=== PATIENT | male | born 1950 | race Caucasian/White ===

== ENCOUNTER 2017-12-13 20:18 | Inpatient (IN) | payer MEDICARE, OTHER, BC ==
[2017-12-13] MEDS: ACETAMINOPHEN 325 MG TAB PO (20:42)
[2017-12-13 20:52] LABS: ADD MAN DIFF? NO
[2017-12-13 20:58] LABS: WHITE BLOOD COUNT 23.9 10^3/ul (4.8-10.8)
[2017-12-13 20:58] LABS: ABNORMAL IP MESSAGE 1; BASOPHIL # 0.1 10^3/ul (0.0-0.1); BASOPHILS % 0.3 % (0.0-2.0); EOSINOPHILS % 0.1 % (0.0-7.0); HEMATOCRIT 39.6 % (42.0-52.0); HEMOGLOBIN 13.4 g/dl (14.0-18.0); LYMPHOCYTES # 2.4 10^3/ul (0.8-2.9); LYMPHOCYTES % 9.9 % (15.0-51.0); MEAN CORPUSCULAR HEMOGLOBIN 29.2 pg (29.0-33.0); MEAN CORPUSCULAR HGB CONC 33.8 g/dl (32.0-37.0); MEAN CORPUSCULAR VOLUME 86.3 fl (82.0-101.0); MEAN PLATELET VOLUME 11.4 fl (7.4-10.4); MONOCYTE # 1.8 10^3/ul (0.3-0.9); MONOCYTES % 7.3 % (0.0-11.0); NEUTROPHIL # 19.6 10^3/ul (1.6-7.5); PLATELET COUNT 200 10^3/UL (140-415); POSITIVE DIFF @See below; RED BLOOD COUNT 4.59 10^6/ul (4.70-6.10); RED CELL DISTRIBUTION WIDTH 12.8 % (11.5-14.5)
[2017-12-13 21:02] LABS: ADD UMIC NO; UR ASCORBIC ACID NEGATIVE (NEGATIVE); UR BILIRUBIN (Dip) NEGATIVE (NEGATIVE); UR BLOOD (Dip) NEGATIVE (NEGATIVE); UR CLARITY CLEAR (CLEAR); UR COLOR YELLOW (YELLOW); UR GLUCOSE (Dip) 3+ mg/dL (NEGATIVE); UR KETONES (Dip) NEGATIVE (NEGATIVE); UR LEUKOCYTE ESTERASE (Dip) NEGATIVE Leu/ul (NEGATIVE); UR NITRITE (Dip) NEGATIVE (NEGATIVE); UR SPECIFIC GRAVITY (Dip) 1.029 (1.003-1.030); UR TOTAL PROTEIN (Dip) NEGATIVE (NEGATIVE); UR UROBILINOGEN (Dip) NEGATIVE (NEGATIVE)
[2017-12-13 21:17] LABS: ALANINE AMINOTRANSFERASE 25 IU/L (13-69); ALBUMIN 4.6 g/dl (3.3-4.9); ALBUMIN/GLOBULIN RATIO 1.21; ALKALINE PHOSPHATASE 57 IU/L (42-121); ANION GAP 20 (8-16); ASPARTATE AMINO TRANSFERASE 21 IU/L (15-46); BILIRUBIN,INDIRECT 0.7 mg/dl (0-1.1); BILIRUBIN,TOTAL 0.7 mg/dl (0.2-1.3); BLOOD UREA NITROGEN 10 mg/dl (7-20); CALCIUM 9.6 mg/dl (8.4-10.2); CARBON DIOXIDE 21 mmol/L (21-31); CHLORIDE 102 mmol/L (97-110); CREATININE 0.75 mg/dl (0.61-1.24); GLUCOSE 246 mg/dl (70-220); LIPASE 44 U/L (23-300); SODIUM 139 mmol/L (135-144); TOTAL PROTEIN 8.4 g/dl (6.1-8.1)
[2017-12-13] MEDS: SODIUM CHLORIDE 0.9% 1L BAG IV* (22:01)
[2017-12-13 22:31] LABS: INR 1.09; PROTIME 14.3 Sec (11.9-14.9); PT RATIO 1.1
[2017-12-13 22:32] LABS: PARTIAL THROMBOPLASTIN TIME 30.8 Sec (25.0-35.0)
[2017-12-13 22:36] LABS: LACTIC ACID 2.8 mmol/L (0.5-2.0)
[2017-12-13] MEDS: SOD CHLORIDE 0.9% 1,000 ML IV (22:43)
[2017-12-13 22:45] LABS: TROPONIN-I < 0.012 ng/ml (0.000-0.120)
[2017-12-14 00:14] LABS: LACTIC ACID 2.5 mmol/L (0.5-2.0)
[2017-12-14] MEDS ORDERED: BISACODYL (EC) 5 MG TAB PO (00:30)
[2017-12-14] MEDS ORDERED: NACL 0.9% 3 ML SYG IV (00:30)
[2017-12-14] MEDS ORDERED: ONDANSETRON 4 MG INJ IV (00:30)
[2017-12-14] MEDS ORDERED: VANCOMYCIN IV PER PHARMACY XX (00:30)
[2017-12-14] MEDS: SOD CHLORIDE 0.9% 1,000 ML IV ×4 (00:48→16:59)
[2017-12-14] MEDS: PIPER-TAZO 3.375 GM IV (PMX) 100 ML IVPB ×4 (00:48→17:26)
[2017-12-14] MEDS ORDERED: DEXTROSE 50% 50 ML SYRINGE IV ×2 (01:00)
[2017-12-14] MEDS ORDERED: GLUCAGON 1 MG INJ IM (01:00)
[2017-12-14] MEDS ORDERED: GLUCOSE GEL 15 GRAM TUBE PO ×2 (01:00)
[2017-12-14] MEDS ORDERED: GLUCOSE GEL 15 GRAM TUBE BUCCAL (01:00)
[2017-12-14] MEDS: ACCU-CHEK XX (02:00)
[2017-12-14 02:51] LABS: LACTIC ACID 1.8 mmol/L (0.5-2.0)
[2017-12-14] MEDS: VANCOMYCIN 1.75 GM in SOD CHLORIDE 0.9% 500 ML IVPB (03:56)
[2017-12-14 06:52] LABS: ADD MAN DIFF? NO
[2017-12-14 06:53] LABS: WHITE BLOOD COUNT 19.6 10^3/ul (4.8-10.8)
[2017-12-14 06:53] LABS: BASOPHILS % 0.2 % (0.0-2.0); HEMATOCRIT 37.6 % (42.0-52.0); HEMOGLOBIN 12.7 g/dl (14.0-18.0); LYMPHOCYTES # 1.7 10^3/ul (0.8-2.9); LYMPHOCYTES % 8.6 % (15.0-51.0); MEAN CORPUSCULAR HEMOGLOBIN 29.7 pg (29.0-33.0); MEAN CORPUSCULAR HGB CONC 33.8 g/dl (32.0-37.0); MEAN CORPUSCULAR VOLUME 88.1 fl (82.0-101.0); MEAN PLATELET VOLUME 11.8 fl (7.4-10.4); MONOCYTE # 1.4 10^3/ul (0.3-0.9); NEUTROPHIL # 16.3 10^3/ul (1.6-7.5); PLATELET COUNT 141 10^3/UL (140-415); RED BLOOD COUNT 4.27 10^6/ul (4.70-6.10); RED CELL DISTRIBUTION WIDTH 12.7 % (11.5-14.5)
[2017-12-14 07:14] LABS: HEMOGLOBIN A1C 9.5 % (0-5.9)
[2017-12-14 07:24] LABS: ALANINE AMINOTRANSFERASE 26 IU/L (13-69); ALBUMIN 4.1 g/dl (3.3-4.9); ALBUMIN/GLOBULIN RATIO 1.24; ALKALINE PHOSPHATASE 53 IU/L (42-121); ANION GAP 18 (8-16); ASPARTATE AMINO TRANSFERASE 20 IU/L (15-46); BILIRUBIN,INDIRECT 0.9 mg/dl (0-1.1); BILIRUBIN,TOTAL 0.9 mg/dl (0.2-1.3); BLOOD UREA NITROGEN 9 mg/dl (7-20); CALCIUM 9.1 mg/dl (8.4-10.2); CARBON DIOXIDE 22 mmol/L (21-31); CHLORIDE 106 mmol/L (97-110); CHOL/HDL RATIO 3.3 RATIO; CHOLESTEROL 122 mg/dl (100-200); CREATININE 0.72 mg/dl (0.61-1.24); GLUCOSE 174 mg/dl (70-220); HDL CHOLESTEROL 36 mg/dl (31-75); LDL CHOLESTEROL,CALCULATED 47 mg/dl; MAGNESIUM 1.5 mg/dl (1.7-2.5); POTASSIUM 3.9 mmol/L (3.5-5.1); SODIUM 142 mmol/L (135-144); TOTAL PROTEIN 7.4 g/dl (6.1-8.1); TRIGLYCERIDES 196 mg/dl (0-149)
[2017-12-14] MEDS: ACETAMINOPHEN 325 MG TAB PO ×2 (08:09→17:26)
[2017-12-14] MEDS: INSULIN ASPART [NOVOLOG] 3 ML PEN SC ×6 (08:12→20:19)
[2017-12-14 08:49] LABS: THYROID STIMULATING HORMONE 0.689 MIU/L (0.465-4.680)
[2017-12-14] MEDS: ACETAMINOPHEN 1000MG/100ML IV 100 ML IVPB (12:24)
[2017-12-14 12:42] LABS: ADD UMIC NO; UR ASCORBIC ACID NEGATIVE (NEGATIVE); UR BILIRUBIN (Dip) NEGATIVE (NEGATIVE); UR BLOOD (Dip) NEGATIVE (NEGATIVE); UR CLARITY CLEAR (CLEAR); UR COLOR YELLOW (YELLOW); UR GLUCOSE (Dip) 3+ mg/dL (NEGATIVE); UR KETONES (Dip) TRACE mg/dL (NEGATIVE); UR LEUKOCYTE ESTERASE (Dip) NEGATIVE Leu/ul (NEGATIVE); UR NITRITE (Dip) NEGATIVE (NEGATIVE); UR SPECIFIC GRAVITY (Dip) 1.025 (1.003-1.030); UR TOTAL PROTEIN (Dip) NEGATIVE (NEGATIVE); UR UROBILINOGEN (Dip) NEGATIVE (NEGATIVE)
[2017-12-14 12:43] LABS: LACTIC ACID 2.5 mmol/L (0.5-2.0)
[2017-12-14] MEDS: IBUPROFEN 600 MG TAB PO ×2 (13:07→20:15)
[2017-12-14] MEDS: MAGNESIUM SULFATE 4 GM/100 ML 100 ML IVPB (13:09)
[2017-12-14] MEDS: INSULIN GLARGINE [LANTus] (100 UNITS/ML) SYG SC (13:14)
[2017-12-14] MEDS: VANCOMYCIN 1.25 GM in SOD CHLORIDE 0.9% 250 ML IVPB (17:28)
[2017-12-14] MEDS: FAMOTIDINE 20 MG TAB PO (20:15)
[2017-12-15] MEDS: PIPER-TAZO 3.375 GM IV (PMX) 100 ML IVPB ×6 (00:27→23:37)
[2017-12-15] MEDS: SOD CHLORIDE 0.9% 1,000 ML IV ×6 (00:50→20:50)
[2017-12-15] MEDS: ACCU-CHEK XX (02:00)
[2017-12-15] MEDS: VANCOMYCIN 1.25 GM in SOD CHLORIDE 0.9% 250 ML IVPB (03:39)
[2017-12-15] MEDS: ACETAMINOPHEN 325 MG TAB PO ×3 (06:15→16:24)
[2017-12-15 06:28] LABS: ADD MAN DIFF? NO
[2017-12-15 06:31] LABS: BASOPHILS % 0.3 % (0.0-2.0); EOSINOPHILS % 0.3 % (0.0-7.0); HEMATOCRIT 34.1 % (42.0-52.0); HEMOGLOBIN 11.1 g/dl (14.0-18.0); LYMPHOCYTES # 0.7 10^3/ul (0.8-2.9); LYMPHOCYTES % 6.5 % (15.0-51.0); MEAN CORPUSCULAR HEMOGLOBIN 29.3 pg (29.0-33.0); MEAN CORPUSCULAR HGB CONC 32.6 g/dl (32.0-37.0); MEAN PLATELET VOLUME 11.9 fl (7.4-10.4); MONOCYTE # 0.4 10^3/ul (0.3-0.9); MONOCYTES % 4.2 % (0.0-11.0); NEUTROPHIL # 9.2 10^3/ul (1.6-7.5); NEUTROPHILS % 87.3 % (39.0-77.0); PLATELET COUNT 115 10^3/UL (140-415); RED BLOOD COUNT 3.79 10^6/ul (4.70-6.10)
[2017-12-15 06:31] LABS: WHITE BLOOD COUNT 10.6 10^3/ul (4.8-10.8)
[2017-12-15 07:18] LABS: ANION GAP 14 (8-16); BLOOD UREA NITROGEN 10 mg/dl (7-20); CALCIUM 8.2 mg/dl (8.4-10.2); CARBON DIOXIDE 20 mmol/L (21-31); CHLORIDE 109 mmol/L (97-110); CREATININE 0.75 mg/dl (0.61-1.24); GLUCOSE 129 mg/dl (70-220); MAGNESIUM 2.1 mg/dl (1.7-2.5); POTASSIUM 3.8 mmol/L (3.5-5.1); SODIUM 139 mmol/L (135-144)
[2017-12-15] MEDS: INSULIN ASPART [NOVOLOG] 3 ML PEN SC ×7 (08:00→20:53)
[2017-12-15] MEDS: INSULIN GLARGINE [LANTus] (100 UNITS/ML) SYG SC (08:48)
[2017-12-15] MEDS: IBUPROFEN 600 MG TAB PO ×3 (08:50→20:57)
[2017-12-15] MEDS: DOCUSATE SODIUM 100 MG CAP PO (11:00)
[2017-12-15 17:17] LABS: VANCOMYCIN,TROUGH 8.3 ug/ml (10.0-20.0)
[2017-12-15 20:16] LABS: PSA, FREE 7.3 ng/mL
[2017-12-15] MEDS: ATORVASTATIN 80 MG TAB PO (20:51)
[2017-12-15] MEDS: TAMSULOSIN (SR) 0.4 MG CAP PO (20:51)
[2017-12-15] MEDS: FAMOTIDINE 20 MG TAB PO (20:53)
[2017-12-16] MEDS: SOD CHLORIDE 0.9% 1,000 ML IV ×5 (00:25→23:41)
[2017-12-16] MEDS: ACETAMINOPHEN 325 MG TAB PO (01:25)
[2017-12-16] MEDS: ACCU-CHEK XX (02:00)
[2017-12-16 02:39] LABS: LACTIC ACID 0.8 mmol/L (0.5-2.0)
[2017-12-16] MEDS: PIPER-TAZO 3.375 GM IV (PMX) 100 ML IVPB ×2 (05:48→11:36)
[2017-12-16 06:48] LABS: ADD MAN DIFF? NO
[2017-12-16 07:00] LABS: BASOPHILS % 0.3 % (0.0-2.0); HEMATOCRIT 31.7 % (42.0-52.0); HEMOGLOBIN 10.4 g/dl (14.0-18.0); LYMPHOCYTES # 1.2 10^3/ul (0.8-2.9); LYMPHOCYTES % 19.4 % (15.0-51.0); MEAN CORPUSCULAR HEMOGLOBIN 28.9 pg (29.0-33.0); MEAN CORPUSCULAR HGB CONC 32.8 g/dl (32.0-37.0); MEAN CORPUSCULAR VOLUME 88.1 fl (82.0-101.0); MEAN PLATELET VOLUME 12.1 fl (7.4-10.4); MONOCYTE # 0.5 10^3/ul (0.3-0.9); MONOCYTES % 7.7 % (0.0-11.0); NEUTROPHIL # 4.3 10^3/ul (1.6-7.5); NEUTROPHILS % 71.9 % (39.0-77.0); PLATELET COUNT 112 10^3/UL (140-415); RED CELL DISTRIBUTION WIDTH 13.1 % (11.5-14.5)
[2017-12-16 07:15] LABS: LACTIC ACID 0.9 mmol/L (0.5-2.0)
[2017-12-16 07:28] LABS: ANION GAP 14 (8-16); BLOOD UREA NITROGEN 10 mg/dl (7-20); CALCIUM 7.9 mg/dl (8.4-10.2); CARBON DIOXIDE 18 mmol/L (21-31); CHLORIDE 111 mmol/L (97-110); CREATININE 0.71 mg/dl (0.61-1.24); GLUCOSE 122 mg/dl (70-220); POTASSIUM 3.7 mmol/L (3.5-5.1); SODIUM 139 mmol/L (135-144)
[2017-12-16] MEDS: INSULIN ASPART [NOVOLOG] 3 ML PEN SC ×7 (08:00→21:48)
[2017-12-16] MEDS: INSULIN GLARGINE [LANTus] (100 UNITS/ML) SYG SC (08:55)
[2017-12-16] MEDS: LINAGLIPTIN 5 MG TABLET PO (08:57)
[2017-12-16] MEDS: ASPIRIN (EC) 81 MG TAB PO (08:57)
[2017-12-16] MEDS: IBUPROFEN 600 MG TAB PO ×3 (08:57→21:45)
[2017-12-16] MEDS: FUROSEMIDE 20 MG TAB PO (08:57)
[2017-12-16] MEDS: DILTIAZEM (CD) 120 MG CAP PO (08:58)
[2017-12-16] MEDS: CIPROFLOXACIN 400MG/D5W 200 ML IVPB ×2 (12:39→21:45)
[2017-12-16] MEDS: ALBUTEROL/IPRATROPIUM (NEB) 3 ML AMP HHN (21:26)
[2017-12-16] MEDS: ATORVASTATIN 80 MG TAB PO (21:44)
[2017-12-16] MEDS: TAMSULOSIN (SR) 0.4 MG CAP PO (21:45)
[2017-12-16] MEDS: FAMOTIDINE 20 MG TAB PO (21:45)
[2017-12-17] MEDS: ALBUTEROL/IPRATROPIUM (NEB) 3 ML AMP HHN ×3 (01:09→08:10)
[2017-12-17] MEDS: ACCU-CHEK XX ×2 (01:22→02:20)
[2017-12-17] MEDS: CIPROFLOXACIN 400MG/D5W 200 ML IVPB (08:21)
[2017-12-17] MEDS: ASPIRIN (EC) 81 MG TAB PO (08:21)
[2017-12-17] MEDS: DILTIAZEM (CD) 120 MG CAP PO (08:22)
[2017-12-17] MEDS: IBUPROFEN 600 MG TAB PO (08:22)
[2017-12-17] MEDS: TAMSULOSIN (SR) 0.4 MG CAP PO (08:22)
[2017-12-17] MEDS: LINAGLIPTIN 5 MG TABLET PO (08:23)
[2017-12-17] MEDS: FUROSEMIDE 20 MG TAB PO (08:23)
[2017-12-17] MEDS: INSULIN ASPART [NOVOLOG] 3 ML PEN SC ×2 (08:40)
[2017-12-17] MEDS: INSULIN GLARGINE [LANTus] (100 UNITS/ML) SYG SC (08:40)
[2017-12-17] MEDS: SOD CHLORIDE 0.9% 1,000 ML IV (10:42)
== END 2017-12-17 11:25 | disposition home or self-care (01) | DRG 872 ==
LOC: FTE 20:18 → 2NE 23:40
PROC: 0T2BX0Z Change Drainage Device in Bladder, External Approach (ICD-10-PCS; principal; 2017-12-15)
DX: A41.9 Sepsis, unspecified organism (principal); E87.2 Acidosis; N39.0 Urinary tract infection, site not specified; R65.20 Severe sepsis without septic shock; B96.20 Unspecified Escherichia coli [E. coli] as the cause of diseases classified elsewhere; I25.10 Atherosclerotic heart disease of native coronary artery without angina pectoris; E78.1 Pure hyperglyceridemia; R33.8 Other retention of urine; I10 Essential (primary) hypertension; E11.9 Type 2 diabetes mellitus without complications; Z95.1 Presence of aortocoronary bypass graft; Z87.891 Personal history of nicotine dependence
CPT/HCPCS: 36415; 71045; 74176; 80048; 80053; 80061; 80202; 81003; 82962; 83036; 83605; 83690; 83735; 84153; 84154; 84443; 84484; 85025; 85610; 85730; 87040; 87086; 93005; 94640; 94664; 99291-25